=== PATIENT | male | born 1955 | race Caucasian/White ===

== ENCOUNTER 2022-03-12 18:12 | Inpatient (IN) | payer MEDICARE, OTHER ==
[~2022-03-12] VITALS: Ht 172.7 cm; Wt 99.9 kg
[2022-03-12] MEDS: buPROPion **SR TABLET** (ZYBAN) 150MG PO SCH (02:00)
[2022-03-12] MEDS ORDERED: SERT-141 PO (19:05)
[2022-03-12] MEDS ORDERED: GABA-282 PO (19:05)
[2022-03-12] MEDS ORDERED: ACET300T48 PO (19:05)
[2022-03-12] MEDS ORDERED: VITA-243 PO (19:05)
[2022-03-12] MEDS ORDERED: SUMA25TA3 PO (19:05)
[2022-03-12] MEDS ORDERED: TELMISARTAN PO (19:05)
[2022-03-12] MEDS ORDERED: BUPR15TASR PO (19:05)
[2022-03-12] MEDS ORDERED: ASPI81CH33 PO (19:05)
[2022-03-12] MEDS ORDERED: VITA400C50 PO (19:05)
[2022-03-12] MEDS ORDERED: JANU50TA8 PO (19:05)
[2022-03-12] MEDS ORDERED: TIZA4CAP PO (19:05)
[2022-03-12] MEDS ORDERED: FLUO20CA22 PO (19:05)
[2022-03-12 19:33] LABS: VENOUS BASE EXCESS -0.4 (-2.0-2.0); VENOUS HCO3 23.1 MEQ/L (23.0-27.0); VENOUS O2 SATURATION 98.8 % (60.0-80.0); VENOUS PARTIAL PRESSURE O2 131.5 mmHg (30.0-50.0); VENOUS STANDARD HCO3 24.2 MEQ/L; VENOUS TOTAL CO2 24.1 MEQ/L (24.0-28.0)
[2022-03-12 19:55] LABS: BASO % 0.3 % (0.0-1.0); EOS % 0.3 % (0.0-3.0); LYMPH # 1.7 10^3/uL (1.5-5.0); MEAN CORPUSCULAR HEMOGLOBIN 28.5 pg (27.0-33.0); MEAN CORPUSCULAR HGB CONC 33.3 g/dl (32.0-36.5); MEAN CORPUSCULAR VOLUME 85.5 fl (80.0-96.0); NEUTROPHILS # 11.4 10^3/uL (1.5-8.5); NEUTROPHILS % 73.4 % (36.0-66.0); PLATELET COUNT, AUTOMATED 185 10^3/uL (150-450); RED BLOOD COUNT 3.86 10^6/uL (4.30-6.10); WHITE BLOOD COUNT 15.5 10^3/uL (4.0-10.0)
[2022-03-12 20:06] LABS: CK-MB VALUE MASS 1.6 NG/ML (<3.6); MB/CK RELATIVE INDEX 0.35 (< OR =4)
[2022-03-12 20:12] LABS: ALBUMIN 3.3 GM/DL (3.2-5.2); ALT/SGPT 22 U/L (12-78); BILIRUBIN,DIRECT 0.6 MG/DL (0.0-0.2); BILIRUBIN,TOTAL 1.1 MG/DL (0.2-1.0); BLOOD UREA NITROGEN 24 MG/DL (7-18); CALCIUM LEVEL 9.1 MG/DL (8.8-10.2); CARBON DIOXIDE LEVEL 23 MEQ/L (21-32); CHLORIDE LEVEL 101 MEQ/L (98-107); CREATININE FOR GFR 1.51 MG/DL (0.70-1.30); ETHYL ALCOHOL (ETHANOL) < 0.003 % (0.000-0.010); GLOMERULAR FILTRATION RATE 49.5 (>49); GLUCOSE, FASTING 176 MG/DL (70-100); SALICYLATE LEVEL < 1.7 MG/DL (5.0-30.0); SODIUM LEVEL 136 MEQ/L (136-145); THYROID STIMULATING HORMONE 0.535 uIU/ML (0.358-3.740); TOTAL PROTEIN 7.1 GM/DL (6.4-8.2)
[2022-03-12 20:24] LABS: ACETONE/KETONE 3.45 MG/DL (<2.81)
[2022-03-12 20:30] LABS: MONO # 2.2 10^3/uL (0.0-0.8)
[2022-03-12] MEDS ORDERED: cefTRIAXone SOD 1 GM in D5W MINI-BAG PLUS 50 ML IV ONE (20:45)
[2022-03-12] MEDS ORDERED: AZITHROMYCIN INJ 500 MG, VIAL MATE ADAPTER 1 EACH in NS 250 ML IV ONE (20:45)
[2022-03-12] MEDS ORDERED: FLUoxetine 20MG CAP PO SCH (21:00)
[2022-03-12] MEDS ORDERED: SERTRALINE HCL 50 MG TAB PO SCH (21:00)
[2022-03-12 22:06] LABS: RSV AMPLIFICATION NEGATIVE (NEGATIVE)
[2022-03-12] MEDS ORDERED: ACET1TAB12 PO (22:18)
[2022-03-12] MEDS ORDERED: TELM1TAB33 PO (22:20)
[2022-03-12] MEDS ORDERED: ZINC1TAB2 PO (22:22)
[2022-03-12] MEDS ORDERED: VITA100054 PO (22:22)
[2022-03-12] MEDS ORDERED: B-12100010 PO (22:22)
[2022-03-12] MEDS ORDERED: HOME MED LIST COMPLETE! XX SCH (22:25)
[2022-03-12] MEDS ORDERED: GLUCAGON INJ 1MG VIAL SC PRN (23:00)
[2022-03-12] MEDS ORDERED: GLUCOSE 4GM CHEW TABLET PO PRN (23:00)
[2022-03-12] MEDS ORDERED: DEXTROSE 50% 50 ML SYRINGE IV PRN (23:00)
[2022-03-13] VITALS (8 sets, daily range): BP systolic 80–140; BP diastolic 48–83; O2SAT 93
[2022-03-13 00:10] LABS: VENOUS BASE EXCESS 1.4 (-2.0-2.0); VENOUS O2 SATURATION 72.3 % (60.0-80.0); VENOUS PARTIAL PRESSURE CO2 46.3 mmHg (38.0-50.0); VENOUS PARTIAL PRESSURE O2 37.4 mmHg (30.0-50.0); VENOUS PH 7.383 UNITS (7.330-7.430); VENOUS STANDARD HCO3 25.2 MEQ/L; VENOUS TOTAL CO2 28.4 MEQ/L (24.0-28.0)
[2022-03-13 00:32] LABS: HEMOGLOBIN A1c 7.2 %
[2022-03-13 00:36] LABS: BLOOD UREA NITROGEN 25 MG/DL (7-18); CALCIUM LEVEL 8.9 MG/DL (8.8-10.2); CARBON DIOXIDE LEVEL 28 MEQ/L (21-32); CHLORIDE LEVEL 101 MEQ/L (98-107); CREATININE FOR GFR 1.44 MG/DL (0.70-1.30); GLOMERULAR FILTRATION RATE 52.3 (>49); GLUCOSE, FASTING 139 MG/DL (70-100); PHOSPHORUS LEVEL 2.2 MG/DL (2.5-4.9); SODIUM LEVEL 137 MEQ/L (136-145)
[2022-03-13] MEDS: ACETAMINOPHEN TAB 650MG DOSE (2X325MG) PO PRN (00:51)
[2022-03-13] MEDS: GABAPENTIN 300 MG CAP PO SCH ×3 (00:51→20:43)
[2022-03-13] MEDS: tiZANidine 4 MG TAB PO SCH ×2 (00:51→09:36)
[2022-03-13] MEDS ORDERED: NS 1,000 ML IV SCH (05:05)
[2022-03-13] MEDS ORDERED: TAMSULOSIN 0.4 MG CAP PO SCH (06:00)
[2022-03-13 06:02] LABS: HEMATOCRIT 33.5 % (42.0-52.0); HEMOGLOBIN 11.1 g/dl (13.5-17.5); MEAN CORPUSCULAR HEMOGLOBIN 28.2 pg (27.0-33.0); MEAN CORPUSCULAR HGB CONC 33.1 g/dl (32.0-36.5); PLATELET COUNT, AUTOMATED 182 10^3/uL (150-450); RED BLOOD COUNT 3.94 10^6/uL (4.30-6.10); WHITE BLOOD COUNT 12.4 10^3/uL (4.0-10.0)
[2022-03-13] MEDS: HEPARIN SOD (PORCINE) 5000UNITS/ML 1ML VIAL/SYRINGE SQ SCH ×3 (06:05→21:35)
[2022-03-13 06:23] LABS: CALCIUM LEVEL 9.2 MG/DL (8.8-10.2); CREATININE FOR GFR 1.32 MG/DL (0.70-1.30); GLOMERULAR FILTRATION RATE 57.8 (>49); MAGNESIUM LEVEL 1.5 MG/DL (1.8-2.4); POTASSIUM SERUM 3.9 MEQ/L (3.5-5.1)
[2022-03-13 08:58] LABS: VITAMIN B12 LEVEL > 2000 PG/ML (247-911)
[2022-03-13] MEDS ORDERED: TELMISARTAN 20 MG TAB PO SCH (09:00)
[2022-03-13] MEDS ORDERED: CYANOCOBALAMIN 500 MCG TAB PO SCH (09:00)
[2022-03-13] MEDS ORDERED: MAG SULF 1GM/100ML (MAG RUN) 1 GM in IV 1 EA IV ONE (09:00)
[2022-03-13] MEDS: INSULIN LISPRO (NovoLOG) PER UNIT SC SCH ×4 (09:35→21:00)
[2022-03-13] MEDS: ASPIRIN 81 MG CHEW TABLET PO SCH (09:36)
[2022-03-13] MEDS: LACTOBACILLUS ACIDOPHILUS CAP (BACID) PO SCH (09:36)
[2022-03-13] MEDS: MAGNESIUM OXIDE 400MG TAB (MAG-OX) PO SCH ×2 (09:36→20:43)
[2022-03-13] MEDS: buPROPion **SR TABLET** (ZYBAN) 150MG PO SCH (09:36)
[2022-03-13] MEDS: ASCORBIC ACID 500 MG TAB PO SCH (09:36)
[2022-03-13] MEDS ORDERED: NS 1,000 ML IV ONE (14:40)
[2022-03-13] MEDS: NS 1,000 ML IV SCH ×2 (16:06→18:34)
[2022-03-13 17:53] LABS: AMPHETAMINES LEVEL URINE NEGATIVE (NEGATIVE); BARBITURATES URINE NEGATIVE (NEGATIVE); BENZODIAZEPINES URINE NEGATIVE (NEGATIVE); CANNABINOIDS URINE NEGATIVE (NEGATIVE); COCAINE METABOLITE URINE NEGATIVE (NEGATIVE); METHADONE URINE NEGATIVE (NEGATIVE); OPIATES URINE POSITIVE (NEGATIVE); PHENCYCLIDINE URINE NEGATIVE (NEGATIVE)
[2022-03-13] MEDS: AZITHROMYCIN INJ 500 MG, VIAL MATE ADAPTER 1 EACH in NS 250 ML IV SCH (20:43)
[2022-03-13] MEDS: cefTRIAXone SOD 1 GM in D5W MINI-BAG PLUS 50 ML IV SCH (22:08)
[2022-03-14] MEDS: NS 1,000 ML IV SCH ×3 (05:00→17:05)
[2022-03-14] MEDS: HEPARIN SOD (PORCINE) 5000UNITS/ML 1ML VIAL/SYRINGE SQ SCH ×3 (05:35→21:25)
[2022-03-14] MEDS: ACETAMINOPHEN TAB 650MG DOSE (2X325MG) PO PRN (05:35)
[2022-03-14 05:38] VITALS: BP 142/69
[2022-03-14 05:57] VITALS: BP_SYST 133; BP_SYST 142; BP_SYST 95; BP_DIAS 62; BP_DIAS 69
[2022-03-14 06:05] LABS: BASO % 0.1 % (0.0-1.0); EOS # 0.3 10^3/uL (0.0-0.5); HEMATOCRIT 32.2 % (42.0-52.0); HEMOGLOBIN 10.6 g/dl (13.5-17.5); LYMPH # 1.9 10^3/uL (1.5-5.0); MEAN CORPUSCULAR HEMOGLOBIN 28.6 pg (27.0-33.0); MEAN CORPUSCULAR HGB CONC 32.9 g/dl (32.0-36.5); MEAN CORPUSCULAR VOLUME 86.8 fl (80.0-96.0); MONO # 1.1 10^3/uL (0.0-0.8); MONO % 11.6 % (2.0-8.0); NEUTROPHILS # 6.3 10^3/uL (1.5-8.5); NEUTROPHILS % 64.6 % (36.0-66.0); PLATELET COUNT, AUTOMATED 203 10^3/uL (150-450); RED BLOOD COUNT 3.71 10^6/uL (4.30-6.10); WHITE BLOOD COUNT 9.7 10^3/uL (4.0-10.0)
[2022-03-14 06:38] LABS: ALBUMIN 2.8 GM/DL (3.2-5.2); ALT/SGPT 24 U/L (12-78); BILIRUBIN,TOTAL 0.4 MG/DL (0.2-1.0); BLOOD UREA NITROGEN 18 MG/DL (7-18); CALCIUM LEVEL 8.3 MG/DL (8.8-10.2); CARBON DIOXIDE LEVEL 22 MEQ/L (21-32); CHLORIDE LEVEL 108 MEQ/L (98-107); GLOMERULAR FILTRATION RATE > 60.0 (>49); GLUCOSE, FASTING 134 MG/DL (70-100); MAGNESIUM LEVEL 1.7 MG/DL (1.8-2.4); POTASSIUM SERUM 4.1 MEQ/L (3.5-5.1); SODIUM LEVEL 141 MEQ/L (136-145); TOTAL PROTEIN 6.3 GM/DL (6.4-8.2)
[2022-03-14] MEDS: INSULIN LISPRO (NovoLOG) PER UNIT SC SCH ×4 (07:30→21:00)
[2022-03-14] MEDS ORDERED: CALCIUM CARBONATE 500 MG CHEW U/D PO PRN (07:50)
[2022-03-14] MEDS ORDERED: MAG SULF 1GM/100ML (MAG RUN) 1 GM in IV 1 EA IV ONE (07:50)
[2022-03-14] MEDS ORDERED: PILL CUTTER 1 EACH XX PRN (08:05)
[2022-03-14] MEDS: ASPIRIN 81 MG CHEW TABLET PO SCH (08:11)
[2022-03-14] MEDS: GABAPENTIN 300 MG CAP PO SCH ×2 (08:11→21:26)
[2022-03-14] MEDS: LACTOBACILLUS ACIDOPHILUS CAP (BACID) PO SCH (08:11)
[2022-03-14] MEDS: ASCORBIC ACID 500 MG TAB PO SCH (08:11)
[2022-03-14] MEDS: K-PHOS ORIGINAL (POT.ACID PHOSPHATE) 500MG TAB PO SCH ×3 (08:20→18:25)
[2022-03-14 09:00] VITALS: O2SAT 95
[2022-03-14] MEDS ORDERED: tiZANidine 4 MG TAB PO SCH (09:00)
[2022-03-14] MEDS ORDERED: NS 1,000 ML IV ONE (09:20)
[2022-03-14 11:05] VITALS: BP_SYST 103; BP_SYST 91; BP_DIAS 50; BP_DIAS 62; BP_DIAS 63
[2022-03-14 14:00] VITALS: BP 134/71
[2022-03-14] MEDS ORDERED: GABAPENTIN 300 MG CAP PO SCH (16:00)
[2022-03-14 19:59] VITALS: BP 148/86
[2022-03-14] MEDS: AZITHROMYCIN INJ 500 MG, VIAL MATE ADAPTER 1 EACH in NS 250 ML IV SCH (21:25)
[2022-03-14] MEDS: cefTRIAXone SOD 1 GM in D5W MINI-BAG PLUS 50 ML IV SCH (22:59)
[2022-03-15] VITALS: BP_SYST 136; BP_SYST 138; BP_SYST 142; BP_DIAS 70; BP_DIAS 72; BP_DIAS 77
[2022-03-15] MEDS: K-PHOS ORIGINAL (POT.ACID PHOSPHATE) 500MG TAB PO SCH (00:30)
[2022-03-15] MEDS: NS 1,000 ML IV SCH ×3 (00:50→08:53)
[2022-03-15 05:15] VITALS: BP 124/71
[2022-03-15 06:00] VITALS: BP_SYST 141; BP_SYST 146; BP_SYST 147; BP_DIAS 77; BP_DIAS 80; BP_DIAS 81
[2022-03-15] MEDS: HEPARIN SOD (PORCINE) 5000UNITS/ML 1ML VIAL/SYRINGE SQ SCH (06:16)
[2022-03-15 06:28] LABS: BASO # 0.1 10^3/uL (0.0-0.2); BASO % 0.6 % (0.0-1.0); EOS # 0.3 10^3/uL (0.0-0.5); EOS % 3.1 % (0.0-3.0); HEMATOCRIT 31.8 % (42.0-52.0); HEMOGLOBIN 10.3 g/dl (13.5-17.5); LYMPH # 1.9 10^3/uL (1.5-5.0); LYMPH % 23.2 % (24.0-44.0); MEAN CORPUSCULAR HEMOGLOBIN 28.1 pg (27.0-33.0); MEAN CORPUSCULAR HGB CONC 32.4 g/dl (32.0-36.5); MEAN CORPUSCULAR VOLUME 86.9 fl (80.0-96.0); MONO # 1.1 10^3/uL (0.0-0.8); MONO % 13.7 % (2.0-8.0); NEUTROPHILS # 4.9 10^3/uL (1.5-8.5); NEUTROPHILS % 58.4 % (36.0-66.0); PLATELET COUNT, AUTOMATED 196 10^3/uL (150-450); RED BLOOD COUNT 3.66 10^6/uL (4.30-6.10); WHITE BLOOD COUNT 8.4 10^3/uL (4.0-10.0)
[2022-03-15 06:56] LABS: ALBUMIN 2.7 GM/DL (3.2-5.2); ALT/SGPT 34 U/L (12-78); BILIRUBIN,TOTAL 0.4 MG/DL (0.2-1.0); BLOOD UREA NITROGEN 13 MG/DL (7-18); CALCIUM LEVEL 8.5 MG/DL (8.8-10.2); CARBON DIOXIDE LEVEL 22 MEQ/L (21-32); CHLORIDE LEVEL 111 MEQ/L (98-107); CREATININE FOR GFR 1.11 MG/DL (0.70-1.30); GLOMERULAR FILTRATION RATE > 60.0 (>49); GLUCOSE, FASTING 169 MG/DL (70-100); MAGNESIUM LEVEL 1.5 MG/DL (1.8-2.4); PHOSPHORUS LEVEL 2.2 MG/DL (2.5-4.9); POTASSIUM SERUM 3.9 MEQ/L (3.5-5.1); SODIUM LEVEL 140 MEQ/L (136-145); TOTAL PROTEIN 6.1 GM/DL (6.4-8.2)
[2022-03-15] MEDS: GABAPENTIN 300 MG CAP PO SCH (08:51)
[2022-03-15] MEDS: ASPIRIN 81 MG CHEW TABLET PO SCH (08:51)
[2022-03-15] MEDS: INSULIN LISPRO (NovoLOG) PER UNIT SC SCH (08:52)
[2022-03-15] MEDS: ASCORBIC ACID 500 MG TAB PO SCH (08:52)
[2022-03-15] MEDS: LACTOBACILLUS ACIDOPHILUS CAP (BACID) PO SCH (08:52)
[2022-03-15] MEDS ORDERED: tiZANidine 4 MG TAB PO SCH (09:00)
[2022-03-15] MEDS ORDERED: MAGNESIUM OXIDE 400MG TAB (MAG-OX) PO SCH (09:00)
[2022-03-15] MEDS ORDERED: K-PHOS ORIGINAL (POT.ACID PHOSPHATE) 500MG TAB PO SCH (09:00)
[2022-03-15] MEDS ORDERED: TIZA10TA PO (10:10)
[2022-03-15] MEDS ORDERED: TELM1TAB33 PO (10:10)
[2022-03-15] MEDS ORDERED: GABA-282 PO (10:10)
[2022-03-15] MEDS ORDERED: LEVO750T14 PO (10:14)
[2022-03-16 14:08] LABS: BODY FLUID CULTURE Not indicated. (.); LEGIONELLA ANTIGEN URINE Negative (Negative); ORGANISM ID Not indicated. (.); SPECIMEN SOURCE Urine (.); URINE STREP PNEUMONIAE ANTIGEN Negative (Negative)
== END 2022-03-15 11:30 | disposition home or self-care (01) | DRG 70 ==
LOC: M ED 18:12 → M ED INP 20:57 → ENRESERV 22:28 → M MSPAV 03-13 00:31
PROVIDERS: ADMIT Internal Medicine; ATTEND Internal Medicine
DX: G93.41 Metabolic encephalopathy (principal); J18.9 Pneumonia, unspecified organism; N17.9 Acute kidney failure, unspecified; N13.2 Hydronephrosis with renal and ureteral calculous obstruction; I12.9 Hypertensive chronic kidney disease with stage 1 through stage 4 chronic kidney disease, or unspecified chronic kidney disease; Z85.118 Personal history of other malignant neoplasm of bronchus and lung; E78.5 Hyperlipidemia, unspecified; E11.22 Type 2 diabetes mellitus with diabetic chronic kidney disease; R41.3 Other amnesia; M54.9 Dorsalgia, unspecified; R53.1 Weakness; R41.0 Disorientation, unspecified; R29.6 Repeated falls; R32 Unspecified urinary incontinence; Z20.822 Contact with and (suspected) exposure to COVID-19; Z86.16 Personal history of COVID-19; Z92.21 Personal history of antineoplastic chemotherapy; Z79.82 Long term (current) use of aspirin; Z79.899 Other long term (current) drug therapy; N18.9 Chronic kidney disease, unspecified; G43.909 Migraine, unspecified, not intractable, without status migrainosus; M19.90 Unspecified osteoarthritis, unspecified site; Z96.651 Presence of right artificial knee joint; Z90.49 Acquired absence of other specified parts of digestive tract; E11.42 Type 2 diabetes mellitus with diabetic polyneuropathy; F17.290 Nicotine dependence, other tobacco product, uncomplicated; R31.9 Hematuria, unspecified; E83.42 Hypomagnesemia; E83.51 Hypocalcemia; E83.39 Other disorders of phosphorus metabolism; T50.905A Adverse effect of unspecified drugs, medicaments and biological substances, initial encounter